=== PATIENT | male | born 1965 | race Caucasian/White ===

== ENCOUNTER 2025-02-02 12:48 | Emergency (ER) | payer OTHER, SELFPAY ==
[2025-02-02 12:56] VITALS: BP 143/93; PULSE 62; TEMP 36.9; O2SAT 99; BMI 35.9
--- NOTE | 2025-02-02 12:58 | XR_ITS ---
The [address] [address] Patient Name: MILEY PASCUAL MRN: [id number] date: 1965 Sex: M Assigned Patient Location: ER Current Patient Location: ED.MAIN Accession/Order Number: [id number] Exam Date: 02/02/2025 13:28 Report Date: 02/02/2025 13:38 At the request of: JUAN MANUEL MONCADA MD Procedure: XR ankle RT min 3V XR ankle RT min 3V 02/02/2025 1:31 PM SIGNS AND SYMPTOMS: ^fall right ankle pain PROTOCOL: 3 views of the right ankle COMPARISON: None FINDINGS: The ankle mortise is preserved. There is no fracture or dislocation. Soft tissue swelling is noted laterally. XR/XR ankle RT min 3V IMPRESSION: No fracture. Mild soft tissue swelling is noted greatest along the lateral malleolus. Impression dictated by: Prabhjot Andrews M.D. 02/02/2025 1:38 PM Dictation Location: [place] [address] Electronically authenticated by: [id number] Y Date: 02/02/2025 13:38
--- NOTE | 2025-02-02 13:00 | ED.GENADUL1 ---
HPI HPI - General Adult General Chief complaint: Extremity Injury, Lower Stated complaint: BWC-FALL; R ANKLE PAIN Time Seen by Provider: 02/02/25 12:51 Source: patient and family Mode of arrival: Wheelchair Limitations: no limitations History of Present Illness HPI narrative: 59-year-old male presents to the emergency department for right ankle pain. He was trimming hedges and was standing on the flatbed of the trailer when he fell off. He did not hit his head and sustained no other injury. He points to the medial and lateral malleolar to indicate where the pain is. No pain in the knee or foot. This happened just before coming into the emergency department. Related Data Previous Rx's ?Medication ?Instructions ?Recorded ibuprofen 800 mg tablet 800 mg PO Q8H PRN pain #20 tabs 02/02/25 Allergies Allergy/AdvReac Type Severity Reaction Status Date / Time lisinopril Allergy Severe Anaphylaxis Verified 02/02/25 12:55 oxycodone AdvReac Severe Anxiety Verified 02/02/25 12:55 sulfamethoxazole (From AdvReac Mild Abdominal Verified 02/02/25 12:55 Bactrim) Pain trimethoprim (From Bactrim) AdvReac Mild Abdominal Verified 02/02/25 12:55 Pain Review of Systems ROS Narrative A ten point review of systems is negative except as noted above. Exam Narrative Exam Narrative: Nurses note and vital signs reviewed General:The patient appears well and in no apparent distress.Patient is resting comfortably on cart. Skin:Warm, dry, no pallor noted.There is no rash noted. Head:Normocephalic, atraumatic Eye: Normal conjunctiva, no drainage Ears, Nose, Mouth, and Throat: oral mucosa is moist. Nares patent. Cardiovascular:Regular Rate and Rhythm Respiratory:Patient is in no distress, no accessory muscle use Back:non-tender, no CVA tenderness bilaterally to percussion. GI:Normal bowel sounds, no tenderness to palpation, no masses appreciated.No rebound, guarding, or rigidity noted. Musculoskeletal: The right foot and ankle are examined. There is no tenderness in the foot but he has diffuse tenderness of the medial and lateral malleolar areas. He has an abrasion in his right knee which has full range of motion and no tenderness in the knee. Neurological:A&O, normal speech Psychiatric:Cooperative Constitutional Vital Signs, click to edit/add: Last Vital Signs Temp 98.5 F 02/02/25 12:56 Pulse 62 02/02/25 12:56 Resp 20 02/02/25 12:56 BP 143/93 H 02/02/25 12:56 Pulse Ox 99 02/02/25 12:56 O2 Del Method Room Air 02/02/25 12:56 Course Vital Signs Vital signs: Vital Signs Temperature 98.5 F 02/02/25 12:56 Pulse Rate 62 02/02/25 12:56 Respiratory Rate 20 02/02/25 12:56 Blood Pressure 143/93 H 02/02/25 12:56 Pulse Oximetry 99 02/02/25 12:56 Oxygen Delivery Method Room Air 02/02/25 12:56 Temperature 98.5 F 02/02/25 12:56 Pulse Rate 62 02/02/25 12:56 Respiratory Rate 20 02/02/25 12:56 Blood Pressure 143/93 H 02/02/25 12:56 Pulse Oximetry 99 02/02/25 12:56 Oxygen Delivery Method Room Air 02/02/25 12:56 Medical Decision Making MDM Narrative Medical decision making narrative: X-ray showed no fracture per radiologist. Jesus wrap and air splint applied, application checked by me and found to be appropriate, he is neurovascular intact. He was offered crutches but does not want them and he was prescribed ibuprofen. Treatment diagnosis and follow-up were discussed with the patient. Differential Diagnosis Differential Diagnosis: Sprain, fracture Imaging Data Right ankle x-ray: Radiologist's impression: ITS Impressions Ankle X-Ray 02/02/25 12:58 IMPRESSION: No fracture. Mild soft tissue swelling is noted greatest along the lateral malleolus. Impression dictated by: Prabhjot Andrews M.D. 02/02/2025 1:38 PM Dictation Location: [place] [address] Electronically authenticated by: [id number] Y Date: 02/02/2025 13:38 Discharge Plan Discharge Chief Complaint: Extremity Injury, Lower Clinical Impression: Right ankle sprain Patient Disposition: Home, Self-Care Time of Disposition Decision: 13:47 Condition: Good Mode of Transportation: Private Vehicle Prescriptions / Home Meds: New ibuprofen 800 mg tablet 800 mg PO Q8H PRN (Reason: pain) Qty: 20 0RF Print Language: [place] Instructions: Ankle Sprain (ED), Ankle Stirrup Splint (ED) Referrals: HELEN CHAVEZ DO [Primary Care Provider, Family Practice] - 1 week
== END 2025-02-02 14:17 | disposition home or self-care (01) ==
PROVIDERS: Emergency Provider Emergency Medicine; PCP Family Medicine
DX: S93.401A Sprain of unspecified ligament of right ankle, initial encounter (principal); S80.211A Abrasion, right knee, initial encounter; W17.89XA Other fall from one level to another, initial encounter; Y93.H2 Activity, gardening and landscaping
CPT/HCPCS: 73610; 99283